=== PATIENT | female | born 1970 | race Caucasian/White ===

== ENCOUNTER 2022-11-01 14:22 | Emergency (ER) | payer OTHER ==
[~2022-11-01] VITALS: Ht 152.4 cm; Wt 55.5 kg
[2022-11-01 14:38] VITALS: BP 169/85
--- NOTE | 2022-11-01 14:50 | NUR ---
BIB SELF C/O AROUNDS LEFT EYE SWELLING, BRUSING , LEFT THIGH, LEFT ELBOW PAIN S/P FALL X 2 DAYS. DENIES LOC. PMH: HTN
[2022-11-01] MEDS ORDERED: IBUPROFEN 600 MG TAB PO ONE (16:50)
[2022-11-01] MEDS ORDERED: IBUP-2213 PO (18:22)
[2022-11-01 19:40] VITALS: BP 138/79
== END 2022-11-01 19:40 | disposition home or self-care (01) ==
LOC: MED 14:22
DX: S00.83XA Contusion of other part of head, initial encounter (principal); S80.12XA Contusion of left lower leg, initial encounter; H05.222 Edema of left orbit; I10 Essential (primary) hypertension; Z79.899 Other long term (current) drug therapy; W19.XXXA Unspecified fall, initial encounter; Y93.89 Activity, other specified; Y92.89 Other specified places as the place of occurrence of the external cause; Y99.8 Other external cause status
CPT/HCPCS: 70486; 99284

== ENCOUNTER 2022-12-31 08:36 | Emergency (ER) | payer OTHER ==
[~2022-12-31] VITALS: Ht 160 cm; Wt 53.5 kg
[~2022-12-31 08:36] MED LIST: IBUP-2213 PO
[2022-12-31 08:53] VITALS: BP 167/99
[2022-12-31] MEDS ORDERED: MECLIZINE 25 MG TAB PO ONE (09:25)
[2022-12-31 09:43] LABS: BASOPHILS % (AUTO) 0.5 % (0.0-2.0); EOSINOPHILS # (AUTO) 0.2 K/uL (0-0.4); EOSINOPHILS % (AUTO) 2.4 % (0.0-4.0); HEMATOCRIT 42.9 % (36-48); HEMOGLOBIN 14.6 g/dL (12.0-16.0); LYMPHOCYTES % (AUTO) 19.9 % (20.5-51.1); MEAN CORPUSCULAR HEMOGLOBIN 29 pg (27-31); MEAN CORPUSCULAR HGB CONC 34 g/dL (33-37); MEAN CORPUSCULAR VOLUME 84.4 fL (80-94); MONOCYTES # (AUTO) 0.5 K/uL (0.8-1.0); MONOCYTES % (AUTO) 5.2 % (1.7-9.3); NEUTROPHILS # (AUTO) 7.2 K/uL (1.8-7.7); PLATELET COUNT (AUTO) 225 K/uL (140-450); RED BLOOD CELL COUNT(AUTO) 5.08 MIL/uL (4.20-5.40); RED CELL DISTRIBUTION WIDTH 13.2 % (11.6-13.7)
[2022-12-31 10:06] LABS: ALBUMIN 4.1 g/dL (3.4-5.0); ANION GAP 13.5 (8-16); CREATININE 0.7 mg/dL (0.6-1.3); POTASSIUM 4.5 mmol/L (3.5-5.1); TOTAL BILIRUBIN 0.7 mg/dL (0.0-1.0)
[2022-12-31] MEDS ORDERED: MECL-303 PO (10:44)
[2022-12-31 11:01] VITALS: BP 118/96
== END 2022-12-31 10:51 | disposition home or self-care (01) ==
LOC: MED 08:36
DX: H81.392 Other peripheral vertigo, left ear (principal); R11.0 Nausea; I10 Essential (primary) hypertension; Z79.899 Other long term (current) drug therapy
CPT/HCPCS: 36415; 70450; 80053; 85025; 93005; 99285; J8597